=== PATIENT | female | born 1960 | race Caucasian/White ===

== ENCOUNTER 2016-03-14 09:38 | Emergency (ER) | payer BC ==
[~2016-03-14 09:38] MED LIST: AMOXICILLIN500 M2 PO; ASPIRIN81 M1 PO; COMBIVENT1 ARO IH; FLEXERIL5 MG PO; Fioricet 325 MG1 TAB PO; KEFLEX500 MG PO; LISINOPRIL10 MG PO; LISINOPRIL5 MG PO; LORAZEPAM1 MG PO; MUCINEX DM 30/61 TAB PO; Motrin,Rufen800 MG PO; PREDNISONE20 MG PO; PRILOSEC40 MG PO; ROBITUSSIN AC 110 ML PO; VICODIN 5/500 505 MG PO; XANAX1 MG PO; ZITHROMAX Z PA250 MG PO
[2016-03-14 09:50] VITALS: BP 150/90
[2016-03-14] MEDS ORDERED: PREDNISONE50 MG PO (11:33)
[2016-03-14] MEDS ORDERED: PERCOCET 325 MG1 TA2 PO (11:33)
== END 2016-03-14 11:59 | disposition home or self-care (01) ==
LOC: ED 09:38
DX: M54.30 Sciatica, unspecified side (principal); Z90.49 Acquired absence of other specified parts of digestive tract

== ENCOUNTER → 2016-09-09 | Outpatient (CLI) | payer OTHER ==
[~2016-09-09] MED LIST changes: +PERCOCET 325 MG1 TA2 PO; +PREDNISONE50 MG PO
== END | disposition home or self-care (01) ==
LOC: MAMMO 13:48
DX: Z12.31 Encounter for screening mammogram for malignant neoplasm of breast (principal)

== ENCOUNTER → 2017-02-04 | Outpatient (CLI) | payer BC, OTHER | END | disposition home or self-care (01) | LOC: US 05:46 | DX: M51.26 Other intervertebral disc displacement, lumbar region (principal); R20.0 Anesthesia of skin; R00.2 Palpitations; I10 Essential (primary) hypertension ==

== ENCOUNTER 2018-05-18 16:34 | Inpatient (IN) | payer BC ==
[~2018-05-18] VITALS: Ht 165.1 cm; Wt 68.2 kg
[2018-05-18 16:35] VITALS: BP 142/92
[2018-05-18 19:40] VITALS: BP 144/90
[2018-05-18 20:15] VITALS: BP 139/77
--- NOTE | 2018-05-18 20:15 | NUR ---
A 57, admitted to 5E, under the services of DREW Mariee MD with a diagnosis of INFULENZA A. Chief complaint is INFULENZA . Patient arrived via stretcher from ER. Monitor applied. Initial assessment completed. Vital signs taken and recorded. DREW MARIEE MD notified of admission to the unit. Orders received. See assessment for past medical history, medications and allergies. Patient and/or family oriented to unit. [facility] 5TH FLOOR visitation policy reviewed. Clothing/patient valuable form completed. JEFF ARELLANO
[2018-05-18] MEDS ORDERED: Carafate1 GM PO (20:24)
[2018-05-18] MEDS ORDERED: ATARAX,VISTARIL10 MG PO (20:24)
[2018-05-19] VITALS: BP 133/93
--- NOTE | 2018-05-19 05:31 | NUR ---
PATIENT C/O COUGH. REQUESTING COUGH DROPS. NOTIFIED DR. OLIVARES. SEE MEW ORDERS.
[2018-05-19 06:56] LABS: BASO % 0.4 % (0.0-1.0); EOS # 0.2 10*3/uL (0.0-0.4); EOS % 2.3 % (1.0-4.0); LYMPH # 2.1 10*3/uL (1.3-4.4); LYMPH % 27.3 % (27.0-41.0); MEAN CELL VOLUME 92.8 fl (81.0-99.0); MEAN CORPUSCULAR HGB 30.7 pg (27.0-31.0); MEAN CORPUSCULAR HGB CONC 33.1 g/dl (33.0-37.0); MEAN PLATELET VOLUME 10.1 fl (9.6-12.3); MONO # 0.7 10*3/uL (0.1-1.0); MONO % 9.2 % (3.0-9.0); NEUT # 4.6 10*3/uL (2.3-7.9); NEUT % 60.3 % (47.0-73.0); PLATELET COUNT AUTOMATED 220 10*3/uL (130-400); RED BLOOD COUNT 3.61 10*6/uL (4.10-5.10); WHITE BLOOD COUNT 7.7 10*3/uL (4.8-10.8)
[2018-05-19 07:03] LABS: HEMATOCRIT 33.5 % (37.0-47.0); HEMOGLOBIN 11.1 g/dl (12.0-16.0)
[2018-05-19 07:12] LABS: ALBUMIN 2.9 gm/dl (3.1-4.5); ALKALINE PHOSPHATASE 70 U/L (45-117); BUN 5 mg/dl (7-24); CHLORIDE 110 mmol/L (98-107); CHOLESTEROL 175 mg/dL (<200); CREATININE 0.66 mg/dL (0.55-1.02); PHOSPHOROUS 3.2 mg/dL (2.5-4.9); SGOT/AST 45 IU/L (3-35); SGPT/ALT 102 U/L (12-78); SODIUM 143 mmol/L (136-145); TOTAL PROTEIN 6.1 gm/dL (6.4-8.2); TRIGLYCERIDES 108 mg/dl (<150); VLDL CHOLESTEROL 22 mg/dL (6-40)
[2018-05-19 07:19] LABS: HDL CHOLESTEROL 43 mg/dl (40-60); LDL CHOLESTEROL 110 mg/dL (9-159)
[2018-05-19 07:29] LABS: POTASSIUM 3.5 mmol/L (3.5-5.1)
[2018-05-19 07:39] LABS: VITAMIN D, 25-HYDROXY 23.4 ng/mL (30-100)
--- NOTE | 2018-05-19 09:00 | NUR ---
Home Improvement Contractor in to talk to patient. Patient states lives at home with her . There are 17 steps in the home. Physician: Dr. Ulises Vega [facility]: [facility] Home health services: none Patient's level of ADLs: INDEPENDENT Patient has working utilities: yes DME: none Follow-up physician's appointment after d/c: she prefers to make her own follow up appt after discharge Does patient want to access PORTAL?: no Discharge plan discussed with patient. She lives at home with her . She is independent in her ADLs and ambulation. Discussed home health care services and she denies any home needs at this time. When medically stable she will be discharged to home. SP SWIFT
[2018-05-19 12:05] VITALS: BP 125/66
--- NOTE | 2018-05-19 15:04 | NUR ---
PATIENT MEDICATED WITH PO NORCO FOR PAIN.
[2018-05-19 16:00] VITALS: BP 139/74
--- NOTE | 2018-05-19 17:33 | NUR ---
Pt given tessolon pearls for cough per prn order.
--- NOTE | 2018-05-19 18:30 | NUR ---
States medication given earlier was effective.
[2018-05-19 20:00] VITALS: BP 152/88
--- NOTE | 2018-05-19 20:00 | NUR ---
PT RESTING IN BED WITH HOB ELEVATED. RESP-EASY AND REGULAR. NO C/O AT THIS TIME. CALL LIGHT IN REACH. SEE SHIFT ASSESSMENT.
--- NOTE | 2018-05-19 21:04 | NUR ---
PT MEDICATED WITH ATIVAN AND ATARAX PO PER PRN ORDER, SEE EMAR. FOR ANXIETY AND SLEEP PER PT. CALL LIGHT IN REACH. ALSO MEDICATED WITH TYLENOL TWO TAB FOR TEMP 100.8. CALL LIGHT IN REACH.
--- NOTE | 2018-05-19 21:05 | NUR ---
MEDICATED WITH TYLENOL TWO TAB PO PER PRN ORDER FOR TEMP 100.8 ORALLY. CALL LIGHT IN REACH.
--- NOTE | 2018-05-19 22:00 | NUR ---
RESTING IN BED. STATES MEDICATION HELPS. CALL LIGHT IN REACH.
[2018-05-20] VITALS: BP 135/72
--- NOTE | 2018-05-20 | NUR ---
SLEEPING IN BED. RESP-EASY AND REGULAR. CALL LIGHT IN REACH. SEE SHIFT ASSESSMENT.
--- NOTE | 2018-05-20 04:13 | NUR ---
PT SITTING UP IN BED. C/O NAUSEA, MEDICATED WITH ZOFRAN IV PER PRN ORDER, SEE EMAR. CALL LIGHT IN REACH.
--- NOTE | 2018-05-20 05:00 | NUR ---
RESTING IN BED. TOLERATED ROUTINE MED. STATES MEDICATION WAS EFFECTIVE. NO C/O AT THIS TIME. CALL LIGHT IN REACH.
--- NOTE | 2018-05-20 07:49 | NUR ---
24 HR chart check completed.
[2018-05-20 08:00] VITALS: BP 110/66
--- NOTE | 2018-05-20 08:30 | NUR ---
RESTING IN BED. BREAKFAST TRAY IN FRONT OF PATIENT WHO COMPLAINS OF NAUSEA. EXPLAINED ZOFRAN IS Q6H PRN AND PATIENT RECEIVED 0400. WILL RECHECK AND ADMINISTER 0945 IF STILL NAUSEOUS.
--- NOTE | 2018-05-20 08:35 | NUR ---
RESTING IN BED. RESPIRATIONS EASY. LUNGS DIMINISHED, CLEAR. PULSE OX 97% RA. C/O COUGH, PROD FOR "THICK YELLOW". OFFERED AND EDUCATED REGARDING TEDS, DECLINED. CALL LIGHT WITHIN REACH.
--- NOTE | 2018-05-20 09:47 | NUR ---
PATIENT CONSUMED TOAST AND 25% OATMEAL; CONTINUES TO C/O NAUSEA, MEDICATED WITH ZOFRAN PER PRN ORDER. ALSO PROVIDED WITH TYLENOL PER PRN ORDER FOR COMPLAINTS OF HEADACHE RATING AN 8.
--- NOTE | 2018-05-20 10:00 | NUR ---
DECLINED 1000 TAMIFLU STATING SHE HAD BEEN RECEIVING TAMIFLU PRIOR TO ADMISSION (SINCE 05/15). ALSO DECINED LOVENOX STATING "I'M UP AND DOWN ENOUGH"
[2018-05-20 12:00] VITALS: BP 119/65
--- NOTE | 2018-05-20 13:55 | NUR ---
PATIENT BURSTS INTO HALLWAY DEMANDING "I NEED TO TALK TO DR CRAWFORD, THE NURSE, SOMEONE." PATIENT TEARFUL, STATES SHE DOESN'T KNOW WHAT IS GOING ON AND SHE IS NOT FEELING ANY BETTER. VOICES DESIRE FOR DISCHARGE. MEDICATED WITH NORCO PER PRN ORDER FOR COMPLAINTS OF HEADACHE RATING A 10 UNRELIEVED BY TYLENOL. ALSO MEDICATED WITH ATIVAN TO ASSIST WITH ANXIETY. DR CRAWFORD TO BE CONTACTED
--- NOTE | 2018-05-20 14:10 | NUR ---
DR CRAWFORD CONTACTED AND UPDATED REGARDING PATIENT'S OUT-BURST AND DEMAND TO BE CALLED. DR CRAWFORD TRANSFERRED TO PATIENT'S PHONE
--- NOTE | 2018-05-20 14:20 | NUR ---
DR CRAWFORD CALLED IN AND NEW ORDERS RECEIVED
[2018-05-20 16:00] VITALS: BP 148/82
[2018-05-20 20:00] VITALS: BP 137/94
--- NOTE | 2018-05-20 20:00 | NUR ---
PATIENT MEDICATED WITH ATARAX AND ATIVAN FOR COMPLAINTS OF ANXIETY. WILL CONTINUE TO MONITOR. CALL LIGHT IN REACH.
[2018-05-21] VITALS: BP 159/87
--- NOTE | 2018-05-21 00:04 | NUR ---
PATIENT MEDICATED WITH NORCO FOR COMPLAINTS OF HEADACHE. WILL CONTINUE TO MONITOR. CALL LIGHT IN REACH.
[2018-05-21 06:45] LABS: BASO % 0.4 % (0.0-1.0); EOS # 0.2 10*3/uL (0.0-0.4); EOS % 1.9 % (1.0-4.0); HEMATOCRIT 34.4 % (37.0-47.0); HEMOGLOBIN 11.5 g/dl (12.0-16.0); LYMPH # 2.6 10*3/uL (1.3-4.4); LYMPH % 28.9 % (27.0-41.0); MEAN CELL VOLUME 92.5 fl (81.0-99.0); MEAN CORPUSCULAR HGB 30.9 pg (27.0-31.0); MEAN CORPUSCULAR HGB CONC 33.4 g/dl (33.0-37.0); MONO # 0.7 10*3/uL (0.1-1.0); NEUT # 5.5 10*3/uL (2.3-7.9); NEUT % 60.1 % (47.0-73.0); PLATELET COUNT AUTOMATED 256 10*3/uL (130-400); RED BLOOD COUNT 3.72 10*6/uL (4.10-5.10); WHITE BLOOD COUNT 9.1 10*3/uL (4.8-10.8)
[2018-05-21 07:07] LABS: ALBUMIN 3.1 gm/dl (3.1-4.5); BUN 8 mg/dl (7-24); CHLORIDE 104 mmol/L (98-107); CREATININE 0.85 mg/dL (0.55-1.02); POTASSIUM 3.6 mmol/L (3.5-5.1); SGPT/ALT 101 U/L (12-78); SODIUM 142 mmol/L (136-145); TOTAL PROTEIN 6.7 gm/dL (6.4-8.2)
[2018-05-21 07:08] LABS: ALKALINE PHOSPHATASE 83 U/L (45-117); SGOT/AST 39 IU/L (3-35)
[2018-05-21 08:00] VITALS: BP 124/72
--- NOTE | 2018-05-21 08:10 | NUR ---
TRANSPORTED OFF FLOOR FOR CXR
--- NOTE | 2018-05-21 08:25 | NUR ---
PATIENT RETURNED FROM CXR
--- NOTE | 2018-05-21 08:50 | NUR ---
CONTINUES TO C/O HEADACHE RATING AN 8. MEDICATED WITH IMITREX PER PRN ORDER. CALL LIGHT WITHIN REACH. WILL MONITOR FOR EFFECTIVENESS
--- NOTE | 2018-05-21 13:07 | NUR ---
[facility] Discharge instructions reviewed with patient/family. Patient receptive and verbalizes understanding. Follow-up care arranged. Written instructions given to patient/family. BURTON LAMAR
== END 2018-05-21 13:07 | disposition home or self-care (01) | DRG 872 ==
LOC: ED 16:34 → EDHOLD 19:36 → 5E 19:36
PROVIDERS: Student in an Organized Health Care Education/Training Program; ADMIT Internal Medicine
DX: A41.9 Sepsis, unspecified organism (principal); E87.2 Acidosis; E44.0 Moderate protein-calorie malnutrition; J10.1 Influenza due to other identified influenza virus with other respiratory manifestations; E87.8 Other disorders of electrolyte and fluid balance, not elsewhere classified; R65.20 Severe sepsis without septic shock; R74.0 Nonspecific elevation of levels of transaminase and lactic acid dehydrogenase [LDH]; R73.9 Hyperglycemia, unspecified; K21.9 Gastro-esophageal reflux disease without esophagitis; I10 Essential (primary) hypertension; G47.00 Insomnia, unspecified; D64.9 Anemia, unspecified; G43.909 Migraine, unspecified, not intractable, without status migrainosus; Z90.49 Acquired absence of other specified parts of digestive tract; Z91.048 Other nonmedicinal substance allergy status; Z82.49 Family history of ischemic heart disease and other diseases of the circulatory system; Z83.3 Family history of diabetes mellitus; Z68.24 Body mass index [BMI] 24.0-24.9, adult

== ENCOUNTER → 2020-04-30 | Outpatient (CLI) | payer OTHER ==
[~2020-04-30] MED LIST changes: +ATARAX,VISTARIL10 MG PO; +Carafate1 GM PO
== END | disposition home or self-care (01) ==
LOC: COVID19 14:36
PROVIDERS: ATTEND Internal Medicine
DX: Z20.822 Contact with and (suspected) exposure to COVID-19 (principal)

== ENCOUNTER → 2020-05-02 | Outpatient (CLI) | payer OTHER | END | disposition home or self-care (01) | LOC: RAD 11:44 | PROVIDERS: ATTEND Internal Medicine | DX: R06.02 Shortness of breath (principal) ==

== ENCOUNTER 2024-07-17 18:51 | Emergency (ER) | payer BC ==
[~2024-07-17] VITALS: Ht 165.1 cm; Wt 65.8 kg
[2024-07-17 19:22] VITALS: BP 156/100
[2024-07-17] MEDS ORDERED: METOPROLOL SUCC25 M2 PO (19:24)
[2024-07-17] MEDS ORDERED: PROTONIX40 M1 PO (19:24)
[2024-07-17] MEDS ORDERED: SODIUM CHLORIDE 0.9% 1,000 ML IV ONE (20:30)
[2024-07-17] MEDS ORDERED: Ondansetron Hydrochloride 4 MG/2 ML VIAL IV ONE (20:30)
[2024-07-17] MEDS ORDERED: HYDROmorphONE Hydrochloride 0.5 MG/0.5 ML SYRINGE IV ONE (20:30)
[2024-07-17] MEDS ORDERED: IOHEXOL 300 MG/ML 100 ML VIAL IV ONE (20:30)
[2024-07-17 20:47] LABS: BASO # 0.1 10*3/uL (0.0-0.1); BASO % 0.7 % (0.0-1.0); EOS # 0.5 10*3/uL (0.0-0.4); EOS % 6.3 % (1.0-4.0); HEMATOCRIT 38.6 % (37.0-47.0); MEAN CELL VOLUME 90.8 fl (81.0-99.0); MEAN CORPUSCULAR HGB 30.4 pg (27.0-31.0); MEAN CORPUSCULAR HGB CONC 33.4 g/dl (33.0-37.0); MEAN PLATELET VOLUME 9.6 fl (9.6-12.3); MONO # 0.9 10*3/uL (0.1-1.0); MONO % 11.6 % (3.0-9.0); NEUT # 4.4 10*3/uL (2.3-7.9); NEUT % 60.5 % (47.0-73.0); PLATELET COUNT AUTOMATED 246 10*3/uL (130-400); RED BLOOD COUNT 4.25 10*6/uL (4.10-5.10); RED CELL DISTRI WIDTH 12.2 % (0-14.5); WHITE BLOOD COUNT 7.3 10*3/uL (4.8-10.8)
[2024-07-17 21:04] LABS: ALKALINE PHOSPHATASE 43 U/L (46-116); BUN 11 mg/dl (9-23); CHLORIDE 104 mmol/L (98-107); LIPASE 35 U/L (12-53); POTASSIUM 3.5 mmol/L (3.4-5.1); SGPT/ALT 18 U/L (5-49); TOTAL PROTEIN 7.1 gm/dL (6.0-8.0)
[2024-07-17] MEDS ORDERED: Pantoprazole Sodium 40 MG VIAL IV ONE (22:40)
== END 2024-07-17 22:57 | disposition home or self-care (01) ==
LOC: ED 18:51
PROVIDERS: Nurse Practitioner Family
DX: R10.13 Epigastric pain (principal); K21.9 Gastro-esophageal reflux disease without esophagitis; I10 Essential (primary) hypertension; Z91.048 Other nonmedicinal substance allergy status; Z79.899 Other long term (current) drug therapy; G43.909 Migraine, unspecified, not intractable, without status migrainosus; Z90.49 Acquired absence of other specified parts of digestive tract